=== PATIENT | female | born 1990 | race Caucasian/White ===

== ENCOUNTER 2017-02-19 18:25 | Emergency (ER) | payer BC, MEDICAID ==
[~2017-02-19] VITALS: Ht 160 cm; Wt 60.0 kg
[~2017-02-19 18:25] MED LIST: ACET325 PO; CEPH500C3 PO; FERR324T4 PO; IBUP600 PO; PREN0.01 PO
[2017-02-19 18:28] VITALS: BP 105/70; PULSE 136; RESP 12; TEMP 100.5; O2SAT 97
--- NOTE | 2017-02-19 18:38 | PD ---
Physical Exam Date Seen by Provider: Feb 19, 2017 Time Seen by Provider: 18:36 Data Data Last Documented VS Vital Signs Date Time Temp Pulse Resp B/P Pulse Ox O2 Delivery O2 Flow Rate FiO2 02/19/17 18:28 100.5 136 12 105/70 97 MDM Supervised Visit with RALPH: No Narrative Course 26 YO F with complaint of cramping abdominal pain, headache. +N/V. Fever 100.7 this since this AM. Patent endorses IUD, states "I don't have a period." Vitals reviewed. Patient seen in triage, awaiting bed placement. Hollie Ray Feb 19, 2017 18:38
[2017-02-19] MEDS ORDERED: METOCLOPRAMIDE HCL 10 MG/2 ML VIAL IV PUSH ONE (22:00)
[2017-02-19] MEDS ORDERED: HYOSCYAMINE 0.125 MG TAB PO ONE (22:00)
[2017-02-19] MEDS ORDERED: IBUPROFEN 600 MG TAB PO ONE (22:00)
[2017-02-19] MEDS ORDERED: SODIUM CHLOR 0.9% 1000 ML INJ 1,000 ML IV ONE (22:00)
[2017-02-19] MEDS ORDERED: diphenhydrAMINE HCL 50 MG/ML VIAL IV PUSH ONE (22:00)
--- NOTE | 2017-02-19 22:06 | PD ---
HPI Chief Complaint: GI Complaint Time Seen by Provider: 22:01 Travel History International Travel<30 days: No Contact w/Intl Traveler<30days: No Traveled to known affect area: No History of Present Illness HPI 26-year-old white female presents to emergency department with a 2 day history of nausea, vomiting, diarrhea, headache and abdominal discomfort. Patient states that this started off with nausea vomiting. All soon after my diarrhea. She has had intermittent abdominal cramping. She is at a fever with a MAXIMUM TEMPERATURE of 100.7 at home. She's taken some ibuprofen with temporary relief. She last ate earlier today but vomited her pain pattern Mita Phillips soon after. She denies any ear pain or sore throat. No cough or congestion. No dysuria or frequency. She denies any bad food or recent travel. No one else is sick. Denies . She states she has an IUD. Periods are irregular PFSH Past Medical History Narrative Medical Asthma Cancer: No Diabetes: No Diminished Hearing: No Glaucoma: No Hepatitis: No Hiatal Hernia: No Hypertension: No Respiratory: Yes (ASTHMA) Thyroid Disease: No ?: Not LMP: N/A IUD : 1 Para: 0 : 1 Past Surgical History Narrative Surgical Bilateral myringotomy tubes, tonsillectomy, appendectomy, breast augmentation Abdominal Surgery: Yes (APPENDECTOMY 1994) Appendectomy: Yes Cardiac Surgery: No Ear Surgery: Yes (PE TUBES, LYMPH NODE REMOVED) Endocrine Surgery: No Eye Surgery: No Genitourinary Surgery: No Gynecologic Surgery: No Oral Surgery: No Pacemaker: No Thoracic Surgery: No Tonsillectomy: Yes Other Surgery: Yes Social History Alcohol Use: No Tobacco Use: No Substance Use: No Allergies-Medications (Allergen,Severity, Reaction): Coded Allergies: Penicillin (Verified Allergy, Intermediate, HIVES, 02/19/17) Cipro (Verified Allergy, Mild, HIVES, 02/19/17) Reported Meds & Prescriptions Reported Meds & Active Scripts Active Levsin-SL (Hyoscyamine Sulfate) 0.125 Mg Subl 0.125-0.25 Mg SL Q6H Zofran (Ondansetron HCl) 4 Mg Tab 4 Mg PO Q6HR PRN Review of Systems Except as stated in HPI: all other systems reviewed are Neg Physical Exam Narrative GENERAL: Well-developed, well-nourished in no apparent distress. Nontoxic appearing. HEAD: Normocephalic, atraumatic. EYES: Pupils equal round and reactive. Extraocular motions intact. No scleral icterus. No injection or drainage. ENT: Nose clear. Throat without erythema, mucous membranes are slightly dry. Status post tonsillectomy. Airway patent. NECK: Trachea midline. Supple, nontender, moves head freely. No central bony tenderness or spasm. CARDIOVASCULAR: Regular tachycardic rate and rhythm without murmurs, gallops, or rubs. RESPIRATORY: Clear to auscultation. Breath sounds equal bilaterally. No wheezes , rales, or rhonchi. GASTROINTESTINAL: Abdomen soft, mild lower abdominal tenderness, nondistended. No hepato-splenomegaly, or palpable masses. No guarding. EXTREMITIES: No clubbing, cyanosis, or edema. No joint tenderness. BACK: Nontender without deformity. No flank tenderness. NEUROLOGICAL: Awake, alert and oriented x 3 .Cranial nerves grossly intact. Motor and sensory grossly within normal limits. Normal speech. Data Data Last Documented VS Vital Signs Date Time Temp Pulse Resp B/P Pulse Ox O2 Delivery O2 Flow Rate FiO2 02/19/17 23:32 99.5 114 18 104/76 100 Orders Complete Blood Count With Diff (02/19/17 21:58) Comprehensive Metabolic Panel (02/19/17 21:58) Lipase (02/19/17 21:58) Urinalysis - C+S If Indicated (02/19/17 21:58) Iv Access Insert/Monitor (02/19/17 21:58) Ed Urine Pregnancytest Poc (02/19/17 21:58) Lactic Acid (02/19/17 21:58) Sodium Chlor 0.9% 1000 Ml Inj (Ns 1000 M (02/19/17 22:00) Diphenhydramine Inj (Benadryl Inj) (02/19/17 22:00) Metoclopramide Inj (Reglan Inj) (02/19/17 22:00) Hyoscyamine (Levsin) (02/19/17 22:00) Ibuprofen (Motrin) (02/19/17 22:00) Sodium Chlorid 0.9% 500 Ml Inj (Ns 500 M (02/19/17 23:45) Oral Rehydration (02/19/17 23:40) Labs Laboratory Tests Test 02/19/17 22:30 White Blood Count 9.6 TH/MM3 Red Blood Count 4.47 MIL/MM3 Hemoglobin 13.0 GM/DL Hematocrit 37.7 % Mean Corpuscular Volume 84.4 FL Mean Corpuscular Hemoglobin 29.1 PG Mean Corpuscular Hemoglobin 34.5 % Concent Red Cell Distribution Width 12.6 % Platelet Count 172 TH/MM3 Mean Platelet Volume 7.8 FL Neutrophils (%) (Auto) 87.2 % Lymphocytes (%) (Auto) 7.7 % Monocytes (%) (Auto) 5.0 % Eosinophils (%) (Auto) 0.0 % Basophils (%) (Auto) 0.1 % Neutrophils # (Auto) 8.3 TH/MM3 Lymphocytes # (Auto) 0.7 TH/MM3 Monocytes # (Auto) 0.5 TH/MM3 Eosinophils # (Auto) 0.0 TH/MM3 Basophils # (Auto) 0.0 TH/MM3 CBC Comment DIFF FINAL Differential Comment Urine Color YELLOW Urine Turbidity HAZY Urine pH 6.0 Urine Specific [place] 1.031 Urine Protein 100 mg/dL Urine Glucose (UA) NEG mg/dL Urine Ketones 150 mg/dL Urine Occult Blood TRACE Urine Nitrite NEG Urine Bilirubin NEG Urine Urobilinogen LESS THAN 2.0 MG/DL Urine Leukocyte Esterase TRACE Urine RBC 2 /hpf Urine WBC 5 /hpf Urine Squamous Epithelial 12 /hpf Cells Urine Bacteria RARE /hpf Urine Mucus MANY /lpf Microscopic Urinalysis Comment CULT NOT INDICATED Sodium Level 132 MEQ/L Potassium Level 3.5 MEQ/L Chloride Level 102 MEQ/L Carbon Dioxide Level 20.7 MEQ/L Anion Gap 9 MEQ/L Blood Urea Nitrogen 7 MG/DL Creatinine 0.57 MG/DL Estimat Glomerular Filtration 129 ML/MIN Rate Random Glucose 122 MG/DL Lactic Acid Level 0.8 mmol/L Calcium Level 8.2 MG/DL Total Bilirubin 1.3 MG/DL Aspartate Amino Transf 25 U/L (AST/SGOT) Alanine Aminotransferase 21 U/L (ALT/SGPT) Alkaline Phosphatase 101 U/L Total Protein 7.8 GM/DL Albumin 3.8 GM/DL Lipase 69 U/L [facility] Medical Decision Making Medical Screen Exam Complete: Yes Emergency Medical Condition: Yes Medical Record Reviewed: Yes Differential Diagnosis Differential diagnoses: Dehydration, electrolyte abnormality, vomiting, diarrhea , gastroenteritis, diverticulitis, UTI Narrative Course IV access is obtained. Routine laboratory tests sent for analysis. CBC, chemistry, lipase, lactic acid. Patient's given 1.5 L bolus of saline, Benadryl 50 mg IV, Reglan 10 mg IV, Levsin 0.25 mg by mouth and Motrin 600 mg by mouth. The patient is feeling much improved. She is taking by mouth fluids without vomiting. Patient's laboratory tests have been reviewed. This is gastroenteritis Diagnosis Primary Impression: Gastroenteritis Patient Instructions: General Instructions Additional Instructions: Rest. Increase fluids. Medications as directed. Continue to take Tylenol or ibuprofen for any fever or discomfort. [place] food for 24 hours. Recheck with your doctor on Wednesday. Return to the ER over the weekend if symptoms worsen. Med/Other Pt SpecificInfo: Prescription(s) given Scripts Hyoscyamine Odt (Levsin-SL)0.125 Mg Subl0.125-0.25 Mg SL Q6H #15 TAB.SL Prov:Arminda Mchugh DO 02/20/17 Ondansetron (Zofran)4 Mg Tab4 Mg PO Q6HR PRN (NAUSEA OR VOMITING) #6 TAB Prov:Arminda Mchugh DO 02/20/17 Disposition: 01 DISCHARGE HOME Condition: Stable Jv Mosqueda Feb 19, 2017 22:06
[2017-02-19 22:56] LABS: AUTOMATED NEUTROPHIL # 8.3 TH/MM3 (1.8-7.7); BASOPHIL % 0.1 % (0.0-2.0); HEMATOCRIT 37.7 % (35.0-46.0); HEMO FLAGS DIFF FINAL; LYMPH % 7.7 % (9.0-44.0); LYMPHOCYTE # 0.7 TH/MM3 (1.0-4.8); MEAN CELL VOLUME 84.4 FL (80.0-100.0); MEAN CORPUSCULAR HEMOGLOBIN 29.1 PG (27.0-34.0); MEAN CORPUSCULAR HGB CONC 34.5 % (32.0-36.0); NEUT % 87.2 % (16.0-70.0); PLATELET COUNT 172 TH/MM3 (150-450); RED BLOOD COUNT 4.47 MIL/MM3 (4.00-5.30); RED CELL DISTRIBUTION WIDTH 12.6 % (11.6-17.2); WHITE BLOOD COUNT 9.6 TH/MM3 (4.0-11.0)
[2017-02-19 23:06] LABS: BACTERIA, URINE RARE /hpf; BLOOD, URINE TRACE (NEG); GLUCOSE,URINE NEG (NEG); KETONE, URINE 150 mg/dL (NEG); MUCUS URINE MANY /lpf (OCC); NITRITE,URINE NEG (NEG); SQUAMOUS EPITHELIAL CELL URINE 12 /hpf (0-5); URINE COLOR YELLOW (YELLW/STRAW)
[2017-02-19 23:08] LABS: COMMENT (UR) CULT NOT INDICATED; CULTURE IF INDICATED CULT NOT INDICATED
[2017-02-19 23:13] LABS: ALKALINE PHOSPHATASE 101 U/L (45-117); TOTAL BILIRUBIN ADULT 1.3 MG/DL (0.2-1.0)
[2017-02-19 23:15] LABS: ALT (GPT) 21 U/L (10-53); ANION GAP 9 MEQ/L (5-15); AST (GOT) 25 U/L (15-37); BICARBONATE 20.7 MEQ/L (21.0-32.0); BLOOD UREA NITROGEN 7 MG/DL (7-18); CHLORIDE 102 MEQ/L (98-107); GLOMERULAR FILTRATION RATE 129 ML/MIN (>89); SODIUM (NA) 132 MEQ/L (136-145)
[2017-02-19 23:23] LABS: POTASSIUM 3.5 MEQ/L (3.5-5.1)
[2017-02-19 23:32] VITALS: BP 104/76; PULSE 114; RESP 18; TEMP 99.5; O2SAT 100
[2017-02-19] MEDS ORDERED: SODIUM CHLORID 0.9% 500 ML INJ 500 ML IV ONE (23:45)
[2017-02-20] MEDS ORDERED: ZOFR4TAB PO (00:09)
[2017-02-20] MEDS ORDERED: LEVS0.124 SL (00:09)
== END 2017-02-20 01:29 | disposition home or self-care (01) ==
LOC: NEPD 18:25
DX: K52.9 Noninfective gastroenteritis and colitis, unspecified (principal); J45.909 Unspecified asthma, uncomplicated
CPT/HCPCS: 80053; 81001; 83605; 83690; 84703; 85025; 96361; 96374; 96375; 99284; J1200; J2765; J7030; J7040

== ENCOUNTER 2017-02-22 09:22 | Emergency (ER) | payer BC, MEDICAID ==
[~2017-02-22] VITALS: Ht 160 cm; Wt 61.0 kg
[~2017-02-22 09:22] MED LIST changes: -ACET325 PO; -CEPH500C3 PO; -FERR324T4 PO; -IBUP600 PO; +LEVS0.124 SL; -PREN0.01 PO; +ZOFR4TAB PO
[2017-02-22 09:24] VITALS: BP 110/72; PULSE 88; RESP 16; TEMP 98.7; O2SAT 99
--- NOTE | 2017-02-22 09:50 | PD ---
HPI Chief Complaint: GI Complaint Time Seen by Provider: 09:37 Travel History International Travel<30 days: No Contact w/Intl Traveler<30days: No Traveled to known affect area: No History of Present Illness HPI The patient was seen and examined in the presence of the nurse. This patient was seen here 3 days ago with vomiting and diarrhea. sHe reports that she is still having multiple episodes of vomiting multiple episodes of diarrhea daily. She now is having liquid red blood in the stool. Has intermittent abdominal cramps but not sustained. Not having fever today. Severity is moderate. Duration now 4 days total. Medications she was prescribed helps but then wears off and the symptoms return PFSH Past Medical History Cancer: No Diabetes: No Diminished Hearing: No Glaucoma: No Hepatitis: No Hiatal Hernia: No Hypertension: No Respiratory: Yes (ASTHMA) Thyroid Disease: No ?: Not : 3 Para: 2 : 1 Past Surgical History Abdominal Surgery: Yes (APPENDECTOMY 1994) Appendectomy: Yes Cardiac Surgery: No Ear Surgery: Yes (PE TUBES, LYMPH NODE REMOVED) Endocrine Surgery: No Eye Surgery: No Genitourinary Surgery: No Gynecologic Surgery: No Oral Surgery: No Pacemaker: No Thoracic Surgery: No Tonsillectomy: Yes Other Surgery: Yes Social History Alcohol Use: No Tobacco Use: No Substance Use: No Allergies-Medications (Allergen,Severity, Reaction): Coded Allergies: Penicillin (Verified Allergy, Intermediate, HIVES, 02/22/17) Cipro (Verified Allergy, Mild, HIVES, 02/22/17) Reported Meds & Prescriptions Reported Meds & Active Scripts Active Levsin-SL (Hyoscyamine Sulfate) 0.125 Mg Subl 0.125-0.25 Mg SL Q6H Zofran (Ondansetron HCl) 4 Mg Tab 4 Mg PO Q6HR PRN Review of Systems General / Constitutional: No: Fever Eyes: No: Visual changes HENT: No: Headaches Cardiovascular: No: Chest Pain or Discomfort Respiratory: No: Shortness of Breath Gastrointestinal: Positive: Nausea, Vomiting, Diarrhea, Abdominal Pain, Hematochezia Genitourinary: No: Dysuria Musculoskeletal: No: Pain Skin: No Rash Neurologic: No: Weakness Psychiatric: No: Depression Endocrine: No: Polydipsia Hematologic/Lymphatic: No: Easy Bruising Physical Exam Narrative GENERAL: Well-nourished, well-developed patient in no apparent distress. SKIN: Focused skin assessment reveals no rash and nodules. Skin is Warm and dry. HEAD: Atraumatic. Normocephalic. EYES: Pupils equal and round. No scleral icterus. No injection or drainage. ENT: No nasal bleeding or discharge. Mucous membranes pink and moist. NECK: Trachea midline. No JVD. CARDIOVASCULAR: Regular rate and rhythm. No murmur appreciated. RESPIRATORY: No accessory muscle use. Clear to auscultation. Breath sounds equal bilaterally. GASTROINTESTINAL: Abdomen soft, non-tender, nondistended. Hepatic and splenic margins not palpable. MUSCULOSKELETAL: No obvious deformities. No clubbing. No cyanosis. No edema. NEUROLOGICAL: Awake and alert. No obvious cranial nerve deficits. Motor grossly within normal limits. Normal speech. PSYCHIATRIC: Appropriate mood and affect; insight and judgment normal. Rectal: External look reveals no obvious fissure or external hemorrhoid Data Data Last Documented VS Vital Signs Date Time Temp Pulse Resp B/P Pulse Ox O2 Delivery O2 Flow Rate FiO2 02/22/17 09:24 98.7 88 16 110/72 99 Room Air Orders Complete Blood Count With Diff (02/22/17 09:46) Basic Metabolic Panel (Bmp) (02/22/17 09:46) Iv Access Insert/Monitor (02/22/17 09:46) Ondansetron Inj (Zofran Inj) (02/22/17 10:00) Sodium Chloride 0.9% Flush (Ns Flush) (02/22/17 10:00) Sodium Chlor 0.9% 1000 Ml Inj (Ns 1000 M (02/22/17 10:00) Labs Laboratory Tests Test 02/22/17 09:54 White Blood Count 5.6 TH/MM3 Red Blood Count 4.19 MIL/MM3 Hemoglobin 12.0 GM/DL Hematocrit 34.7 % Mean Corpuscular Volume 82.8 FL Mean Corpuscular Hemoglobin 28.7 PG Mean Corpuscular Hemoglobin 34.6 % Concent Red Cell Distribution Width 12.9 % Platelet Count 193 TH/MM3 Mean Platelet Volume 7.2 FL Neutrophils (%) (Auto) 64.5 % Lymphocytes (%) (Auto) 23.8 % Monocytes (%) (Auto) 11.0 % Eosinophils (%) (Auto) 0.3 % Basophils (%) (Auto) 0.4 % Neutrophils # (Auto) 3.6 TH/MM3 Lymphocytes # (Auto) 1.3 TH/MM3 Monocytes # (Auto) 0.6 TH/MM3 Eosinophils # (Auto) 0.0 TH/MM3 Basophils # (Auto) 0.0 TH/MM3 CBC Comment DIFF FINAL Differential Comment Sodium Level 137 MEQ/L Potassium Level 3.1 MEQ/L Chloride Level 104 MEQ/L Carbon Dioxide Level 24.4 MEQ/L Anion Gap 9 MEQ/L Blood Urea Nitrogen 7 MG/DL Creatinine 0.61 MG/DL Estimat Glomerular Filtration 120 ML/MIN Rate Random Glucose 103 MG/DL Calcium Level 9.0 MG/DL [facility] Medical Decision Making Medical Screen Exam Complete: Yes Emergency Medical Condition: Yes Medical Record Reviewed: Yes Differential Diagnosis Gastroenteritis, colitis, internal hemorrhoid, dehydration, electrolyte abnormality Narrative Course I have reviewed the patient's electronic medical record. Reviewed her visit from 3 days ago including lab studies IV placed CBC is normal Metabolic profile is normal except for hypokalemia of 3.1 I gave her IV Zofran and 1 L normal saline IV bolus Her abdomen is soft and benign Patient has some degree of colitis but presentation is such that I think she will do fine as an outpatient Potassium replacement written Diagnosis Primary Impression: Colitis, acute Additional Impression: Hypokalemia Additional Instructions: The patient was advised to follow up with their physician and return if they worsen. Med/Other Pt SpecificInfo: Prescription(s) given Scripts Potassium Bicarbonate Effervescent (K-Vescent)25 Meq Tab50 Meq PO ONCE #2 TAB Ref 0 Prov:Miguel Sorto MD 02/22/17 Disposition: 01 DISCHARGE HOME Condition: Stable Miguel Sorto MD Feb 22, 2017 09:50
[2017-02-22] MEDS ORDERED: ONDANSETRON HCL 4 MG/2 ML VIAL IVP ONE (10:00)
[2017-02-22] MEDS ORDERED: SODIUM CHLOR 0.9% 1000 ML INJ 1,000 ML IV ONE (10:00)
[2017-02-22] MEDS ORDERED: SODIUM CHLORIDE 0.9% FLUSH 10 ML FLUSH IVF PRN (10:00)
[2017-02-22 10:11] LABS: AUTOMATED NEUTROPHIL # 3.6 TH/MM3 (1.8-7.7); BASOPHIL % 0.4 % (0.0-2.0); EOSINOPHIL % 0.3 % (0.0-4.0); HEMATOCRIT 34.7 % (35.0-46.0); HEMO FLAGS DIFF FINAL; LYMPH % 23.8 % (9.0-44.0); LYMPHOCYTE # 1.3 TH/MM3 (1.0-4.8); MEAN CELL VOLUME 82.8 FL (80.0-100.0); MEAN CORPUSCULAR HEMOGLOBIN 28.7 PG (27.0-34.0); MEAN CORPUSCULAR HGB CONC 34.6 % (32.0-36.0); NEUT % 64.5 % (16.0-70.0); PLATELET COUNT 193 TH/MM3 (150-450); RED BLOOD COUNT 4.19 MIL/MM3 (4.00-5.30); RED CELL DISTRIBUTION WIDTH 12.9 % (11.6-17.2); WHITE BLOOD COUNT 5.6 TH/MM3 (4.0-11.0)
[2017-02-22 10:39] LABS: BICARBONATE 24.4 MEQ/L (21.0-32.0); POTASSIUM 3.1 MEQ/L (3.5-5.1)
[2017-02-22] MEDS ORDERED: KLORCONEF PO (11:14)
[2017-02-22 11:24] VITALS: BP 110/66; PULSE 76; RESP 18; O2SAT 99
== END 2017-02-22 11:25 | disposition home or self-care (01) ==
LOC: NEPD 09:22
DX: K52.9 Noninfective gastroenteritis and colitis, unspecified (principal); E87.6 Hypokalemia; K92.1 Melena; Z87.09 Personal history of other diseases of the respiratory system
CPT/HCPCS: 80048; 85025; 96374; 99284; J2405; J7030